=== PATIENT | female | born 1950 | race Caucasian/White ===

== ENCOUNTER → 2016-10-14 | Outpatient (REF) | payer OTHER | LOC: M LAB REF 16:54 | PROVIDERS: ATTEND Ophthalmology | DX: R50.9 Fever, unspecified (principal) ==

== ENCOUNTER → 2017-10-26 | Outpatient (CLI) | payer OTHER ==
[2017-10-26 11:10] LABS: HEMATOCRIT 38.6 % (36.0-47.0); MEAN CORPUSCULAR HEMOGLOBIN 33.5 pg (27.0-33.0); MEAN CORPUSCULAR HGB CONC 33.7 g/dl (32.0-36.5); MEAN CORPUSCULAR VOLUME 99.5 fl (80.0-96.0); PLATELET COUNT, AUTOMATED 240 10^3/uL (150-450); RED BLOOD COUNT 3.88 10^6/uL (4.00-5.40); RED CELL DISTRIBUTION WIDTH 14.7 % (11.5-14.5); WHITE BLOOD COUNT 5.6 10^3/uL (4.0-10.0)
[2017-10-26 11:13] LABS: APPEARANCE, URINE CLEAR (CLEAR); BACTERIA, URINE AUTO NEGATIVE (NEGATIVE); BILIRUBIN, URINE AUTO NEGATIVE (NEGATIVE); BLOOD, URINE BLOOD NEGATIVE (NEGATIVE); COLOR, URINE YELLOW (YELLOW); GLUCOSE, URINE (UA) AUTO NEGATIVE (NEGATIVE); KETONE, URINE AUTO NEGATIVE (NEGATIVE); LEUKOCYTE ESTERASE, URINE AUTO NEGATIVE (NEGATIVE); MUCUS, URINE SMALL (NEGATIVE); NITRITE, URINE AUTO NEGATIVE (NEGATIVE); PROTEIN, URINE AUTO NEGATIVE (NEGATIVE); RBC, URINE AUTO 3 /HPF (0-3); SQUAMOUS EPITHELIAL CELL UR AU 1 /HPF (0-6); UROBILINOGEN, URINE AUTO 0.2 mg/dL (0.0-2.0); WBC, URINE AUTO 1 /HPF (0-3)
[2017-10-26 11:23] LABS: INR 1.88; PROTHROMBIN TIME 22.2 SECONDS (12.4-14.5)
[2017-10-26 11:34] LABS: ALBUMIN/GLOBULIN RATIO 1.25 (1.00-1.93); ALKALINE PHOSPHATASE 49 U/L (45-117); ALT/SGPT 23 U/L (12-78); ANION GAP 5 MEQ/L (8-16); AST/SGOT 14 U/L (7-37); BILIRUBIN,TOTAL 0.6 MG/DL (0.2-1.0); BLOOD UREA NITROGEN 17 MG/DL (7-18); CALCIUM LEVEL 9.5 MG/DL (8.8-10.2); CARBON DIOXIDE LEVEL 29 MEQ/L (21-32); CHLORIDE LEVEL 107 MEQ/L (98-107); CREATININE FOR GFR 0.57 MG/DL (0.55-1.30); GLOMERULAR FILTRATION RATE > 60.0 (>45); GLUCOSE, FASTING 81 MG/DL (70-100); POTASSIUM SERUM 3.8 MEQ/L (3.5-5.1); SODIUM LEVEL 141 MEQ/L (136-145); TOTAL PROTEIN 7.2 GM/DL (6.4-8.2)
[2017-10-26 22:19] LABS: ERYTHROCYTE SEDIMENTATION RATE 9 mm/hr (0-30)
== END ==
LOC: M ADMPAT 09:17
DX: Z01.818 Encounter for other preprocedural examination (principal); M16.11 Unilateral primary osteoarthritis, right hip
CPT/HCPCS: 71046

== ENCOUNTER 2017-11-16 05:47 | Inpatient (IN) | payer OTHER ==
[2017-11-16] MEDS ORDERED: LIDOCAINE 1% MDV 20ML VIAL SQ (06:00)
[2017-11-16] MEDS: LR 1,000 ML IV ×4 (06:31→23:05)
[2017-11-16] MEDS ORDERED: fentaNYL 100 MCG/2 ML INJECTION (J3010) As Ordered (06:53)
[2017-11-16] MEDS ORDERED: MIDAZOLAM INJ 2 MG/2 ML VIAL (J2250) As Ordered (06:53)
[2017-11-16] MEDS ORDERED: PROPOFOL 200 MG/20 ML VIAL As Ordered (06:55)
[2017-11-16] MEDS ORDERED: LIDOCAINE 2% INJ 100 MG/5 ML SDV (FOR ANES.) As Ordered (06:55)
[2017-11-16] MEDS: EPINEPHrine INJ 1 MG/ML 1ML AMP As Ordered (08:12)
[2017-11-16] MEDS ORDERED: dexameTHASONE 4 MG/ML 1ML VIAL (J1100) As Ordered (08:14)
[2017-11-16] MEDS ORDERED: ONDANSETRON 4MG/2ML VIAL (J2405) As Ordered (08:14)
[2017-11-16] MEDS: ceFAZolin 1GM INJ (J0690 PER 500MG) As Ordered (08:16)
[2017-11-16] MEDS: TRANEXAMIC ACID 100 MG/ML 10ML VIAL As Ordered (08:17)
[2017-11-16] MEDS ORDERED: fentaNYL 100 MCG/2 ML INJECTION (J3010) IV (09:45)
[2017-11-16] MEDS ORDERED: ONDANSETRON 4MG/2ML VIAL (J2405) IV (09:45)
[2017-11-16] MEDS ORDERED: FLEET ENEMA PR (09:45)
[2017-11-16] MEDS ORDERED: ACETAMINOPHEN TAB 650MG DOSE (2X325MG) PO (09:45)
[2017-11-16] MEDS ORDERED: PERCOCET 5MG/325MG TAB As Ordered (10:07)
[2017-11-16] MEDS: PERCOCET 5MG/325MG TAB PO (10:15)
[2017-11-16] MEDS: ONDANSETRON 4MG/2ML VIAL (J2405) IV (12:05)
[2017-11-16] MEDS: HYDROMORPHONE HCL 0.5 MG/ 0.5 ML SYRINGE (J1170 PER 1) IV ×2 (13:32→19:38)
[2017-11-16] MEDS: diphenhydrAMINE 25 MG CAP PO (14:13)
[2017-11-16] MEDS: FENOFIBRATE 145 MG TAB (TRICOR) PO (19:38)
[2017-11-16] MEDS: SIMVASTATIN 10 MG TAB PO (19:38)
[2017-11-16] MEDS: QUEtiapine FUMARATE 25 MG TAB PO (19:38)
[2017-11-17] MEDS: ONDANSETRON 4MG/2ML VIAL (J2405) IV (00:20)
[2017-11-17] MEDS: HYDROMORPHONE HCL 0.5 MG/ 0.5 ML SYRINGE (J1170 PER 1) IV ×2 (00:42→05:28)
[2017-11-17] MEDS: LEVOTHYROXINE 100MCG TABLET (0.1MG) PO (05:31)
[2017-11-17 06:38] LABS: HEMATOCRIT 29.1 % (36.0-47.0); HEMOGLOBIN 9.7 g/dl (12.0-15.5); MEAN CORPUSCULAR HEMOGLOBIN 33.7 pg (27.0-33.0); MEAN CORPUSCULAR HGB CONC 33.3 g/dl (32.0-36.5); PLATELET COUNT, AUTOMATED 152 10^3/uL (150-450); RED BLOOD COUNT 2.88 10^6/uL (4.00-5.40); RED CELL DISTRIBUTION WIDTH 15.1 % (11.5-14.5)
[2017-11-17 06:47] LABS: INR 1.01; PROTHROMBIN TIME 13.4 SECONDS (12.4-14.5)
[2017-11-17 07:06] LABS: ANION GAP 8 MEQ/L (8-16); BLOOD UREA NITROGEN 19 MG/DL (7-18); CALCIUM LEVEL 8.2 MG/DL (8.8-10.2); CARBON DIOXIDE LEVEL 25 MEQ/L (21-32); CHLORIDE LEVEL 109 MEQ/L (98-107); CREATININE FOR GFR 0.65 MG/DL (0.55-1.30); GLOMERULAR FILTRATION RATE > 60.0 (>45); GLUCOSE, FASTING 155 MG/DL (70-100); MAGNESIUM LEVEL 1.9 MG/DL (1.8-2.4); POTASSIUM SERUM 3.5 MEQ/L (3.5-5.1); SODIUM LEVEL 142 MEQ/L (136-145)
[2017-11-17] MEDS ORDERED: PERCOCET 5MG/325MG TAB PO ×2 (08:00)
[2017-11-17] MEDS ORDERED: NORCO, ANEXSIA 5/325MG TABLET (HYDROcodone/ACETAMINOPHEN) PO (08:30)
[2017-11-17] MEDS: CitaloPRAM (CeleXA) 20 MG TAB PO (08:48)
[2017-11-17] MEDS: NORCO, ANEXSIA 5/325MG TABLET (HYDROcodone/ACETAMINOPHEN) PO ×3 (08:48→18:03)
[2017-11-17] MEDS: MIRALAX *UNIT DOSE* 17GM PACKET PO (08:49)
[2017-11-17] MEDS: MOM 30ML SUSPENSION UDC PO (08:49)
[2017-11-17] MEDS: SENOKOT S TAB PO ×2 (08:49→20:38)
[2017-11-17] MEDS ORDERED: ALPRAZolam 0.25 MG TAB PO (09:00)
[2017-11-17 10:08] LABS: VITAMIN B12 LEVEL 671 PG/ML (247-911)
[2017-11-17] MEDS ORDERED: PILL CRUSHER/CUTTER 1 EACH XX (17:30)
[2017-11-17] MEDS: MERCAPTOPURINE 50 MG PO (18:03)
[2017-11-17] MEDS: RIVAROXABAN 20 MG TAB (XARELTO) PO (18:03)
[2017-11-17] MEDS: QUEtiapine FUMARATE 25 MG TAB PO (20:38)
[2017-11-17] MEDS: FENOFIBRATE 145 MG TAB (TRICOR) PO (20:38)
[2017-11-17] MEDS: SIMVASTATIN 10 MG TAB PO (20:38)
[2017-11-18] MEDS: NORCO, ANEXSIA 5/325MG TABLET (HYDROcodone/ACETAMINOPHEN) PO ×3 (01:21→12:57)
[2017-11-18] MEDS: LEVOTHYROXINE 100MCG TABLET (0.1MG) PO (05:36)
[2017-11-18 06:02] LABS: HEMATOCRIT 25.7 % (36.0-47.0); HEMOGLOBIN 8.4 g/dl (12.0-15.5); MEAN CORPUSCULAR HEMOGLOBIN 33.6 pg (27.0-33.0); MEAN CORPUSCULAR HGB CONC 32.7 g/dl (32.0-36.5); MEAN CORPUSCULAR VOLUME 102.8 fl (80.0-96.0); PLATELET COUNT, AUTOMATED 120 10^3/uL (150-450); RED CELL DISTRIBUTION WIDTH 15.1 % (11.5-14.5); WHITE BLOOD COUNT 6.6 10^3/uL (4.0-10.0)
[2017-11-18 06:13] LABS: INR 1.03; PROTHROMBIN TIME 13.6 SECONDS (12.4-14.5)
[2017-11-18 06:34] LABS: ANION GAP 6 MEQ/L (8-16); BLOOD UREA NITROGEN 10 MG/DL (7-18); CALCIUM LEVEL 8.1 MG/DL (8.8-10.2); CARBON DIOXIDE LEVEL 27 MEQ/L (21-32); CHLORIDE LEVEL 109 MEQ/L (98-107); GLOMERULAR FILTRATION RATE > 60.0 (>45); GLUCOSE, FASTING 112 MG/DL (70-100); MAGNESIUM LEVEL 1.9 MG/DL (1.8-2.4); POTASSIUM SERUM 3.7 MEQ/L (3.5-5.1); SODIUM LEVEL 142 MEQ/L (136-145)
[2017-11-18] MEDS: CitaloPRAM (CeleXA) 20 MG TAB PO (08:01)
[2017-11-18] MEDS: MERCAPTOPURINE 50 MG PO (08:02)
[2017-11-18] MEDS: MOM 30ML SUSPENSION UDC PO (08:02)
[2017-11-18] MEDS: MIRALAX *UNIT DOSE* 17GM PACKET PO (08:02)
[2017-11-18] MEDS: SENOKOT S TAB PO (08:02)
== END 2017-11-18 13:10 | disposition home health service (06) | DRG 470 ==
LOC: M OR 05:47 → M MS5PR 10:20
PROC: 0SR90JA Replacement of Right Hip Joint with Synthetic Substitute, Uncemented, Open Approach (ICD-10-PCS; principal; 2017-11-16 07:30)
DX: M16.11 Unilateral primary osteoarthritis, right hip (principal); Z88.5 Allergy status to narcotic agent; Z88.8 Allergy status to other drugs, medicaments and biological substances; I10 Essential (primary) hypertension; G47.33 Obstructive sleep apnea (adult) (pediatric); E03.9 Hypothyroidism, unspecified; E78.5 Hyperlipidemia, unspecified; F32.9 Major depressive disorder, single episode, unspecified; E53.8 Deficiency of other specified B group vitamins; Z86.718 Personal history of other venous thrombosis and embolism; K52.9 Noninfective gastroenteritis and colitis, unspecified; Z79.899 Other long term (current) drug therapy; F41.9 Anxiety disorder, unspecified

== ENCOUNTER → 2020-06-12 | Outpatient (CLI) | payer SELFPAY ==
[~2020-06-12] MED LIST: ALIG4CAP PO; CALC600T31 PO; CELE40TA PO; ESTR1CRE VA; FENO145T7 PO; FISH120012 PO; HYDR-3713 PO; ICAPCAP PO; LOPE2TAB3 PO; MERC50TA2 PO; NASC1SPR; NEUR100C PO; PERC5TAB12 PO; QUET1TAB7 PO; REST0.057 OU; SIMV10TA21 PO; SYNT100T PO; VITA50005 PO; XARE20TA PO; ZOFR4TAB16 PO; [UNRECOGNIZED DRUG - CODE] PO
== END ==
LOC: M LABCAHC 18:10
PROVIDERS: ATTEND Pediatrics
DX: Z11.59 Encounter for screening for other viral diseases (principal)

== ENCOUNTER → 2021-06-12 | Outpatient (CLI) | payer OTHER ==
[~2021-06-12] MED LIST changes: +QUET1TAB17 PO; -QUET1TAB7 PO
--- NOTE | 2021-06-12 13:39 | REP ---
INDICATION: LOOSENING OF LT ARTIFICIAL HIP JOINT. COMPARISON: MRI 07/17/2020. TECHNIQUE/RADIOTRACER AND DOSE: Following the intravenous administration of 22.0 mCi technetium 99 M MDP, patient's pelvis and hips are imaged in multiple projections, in the flow phase, blood pool phase and delayed phase. FINDINGS: There are photopenic hip prostheses bilaterally. The left prosthesis is new since the prior MRI. There is minimal increased blood flow, and mild increased blood pooling in the proximal left femur lateral to the proximal aspect of the left hip prosthesis. There is diffuse increased osseous uptake surrounding the femoral portion of the left prosthesis. No significant abnormality is seen on the right. IMPRESSION: Minimal increased blood flow, mild increased blood pooling and more extensive [id number] diffuse osseous uptake involving the proximal left femur adjacent to the left femoral prosthesis. Differential diagnosis would include postsurgical uptake, loosening or infection. <Electronically signed by Rosales Elise > 06/12/21 [id number]
== END ==
LOC: M RAD 08:14
PROVIDERS: ATTEND Orthopaedic Surgery
DX: Z96.642 Presence of left artificial hip joint (principal)
CPT/HCPCS: 78315; A9503

== ENCOUNTER → 2021-07-09 | Outpatient (CLI) | payer OTHER ==
[~2021-07-09] MED LIST changes: +**SFHN** LIDOCAINE 1% MDV 20ML VIAL ONE; +**SFHN** SODIUM BICARBONATE 8.4% 10MEQ 10ML VIAL ONE; +CYMB1CAP5 PO
[2021-07-09 13:37] VITALS: BP 146/84
== END ==
LOC: M WHCPRO 12:30
PROVIDERS: ATTEND Surgery
DX: D05.11 Intraductal carcinoma in situ of right breast (principal)

== ENCOUNTER → 2021-07-26 | Outpatient (CLI) | payer OTHER ==
[~2021-07-26] MED LIST changes: -**SFHN** LIDOCAINE 1% MDV 20ML VIAL ONE; -**SFHN** SODIUM BICARBONATE 8.4% 10MEQ 10ML VIAL ONE; +PROHANCE 279.3MG/ML 15ML VIAL As Ordered ONE
== END ==
LOC: M RAD 14:36
PROVIDERS: ATTEND Surgery
DX: D05.11 Intraductal carcinoma in situ of right breast (principal); Z97.8 Presence of other specified devices
CPT/HCPCS: A9576; C8908

== ENCOUNTER → 2021-08-03 | Outpatient (CLI) | payer OTHER ==
[~2021-08-03] MED LIST changes: +CALC600T60 PO; +ERGO500029 PO; +FORT600S SC; +LEVO112T2 PO; +PRESCAP PO; -PROHANCE 279.3MG/ML 15ML VIAL As Ordered ONE
== END ==
LOC: M LABSMTC 10:46
PROVIDERS: ATTEND Anesthesiology
DX: Z20.822 Contact with and (suspected) exposure to COVID-19 (principal); Z11.52 Encounter for screening for COVID-19

== ENCOUNTER → 2021-08-05 | Outpatient (CLI) | payer OTHER ==
[~2021-08-05] MED LIST changes: +ANAS1TAB2 PO; +CALC1CAP39 PO; +LACT1TAB PO; +LOPE1CAP5 PO; +QC F0.52 PO; +ROXI1TAB2 PO
[2021-08-05 18:00] LABS: HEMATOCRIT 42.2 % (36.0-47.0); HEMOGLOBIN 13.7 g/dl (12.0-15.5); MEAN CORPUSCULAR HEMOGLOBIN 30.9 pg (27.0-33.0); MEAN CORPUSCULAR HGB CONC 32.5 g/dl (32.0-36.5); MEAN CORPUSCULAR VOLUME 95.3 fl (80.0-96.0); PLATELET COUNT, AUTOMATED 214 10^3/uL (150-450); RED BLOOD COUNT 4.43 10^6/uL (4.00-5.40); WHITE BLOOD COUNT 7.1 10^3/uL (4.0-10.0)
== END ==
LOC: M PLAIMG 14:44
PROVIDERS: ATTEND Surgery
DX: Z01.818 Encounter for other preprocedural examination (principal)

== ENCOUNTER 2021-08-08 07:23 | Day surgery (SDC) | payer OTHER ==
[~2021-08-08] VITALS: Ht 160 cm; Wt 72.2 kg
[~2021-08-08 07:23] MED LIST changes: -ANAS1TAB2 PO; -CALC1CAP39 PO; +HEPARIN SOD (PORCINE) 5000UNITS/ML 1ML VIAL/SYRINGE SQ ONE; -LACT1TAB PO; +LIDOCAINE 1% MDV 20ML VIAL SQ PRN; -LOPE1CAP5 PO; +LR 1,000 ML IV ONE; -QC F0.52 PO; -ROXI1TAB2 PO; +ceFAZolin SOD 2 GM in IV 1 EA IV ONE
[2021-08-08] MEDS ORDERED: ONDANSETRON 4MG/2ML VIAL As Ordered ONE (09:09)
[2021-08-08] MEDS ORDERED: LIDOCAINE 2% 100MG/5ML SDV (FOR ANES.) As Ordered ONE (09:09)
[2021-08-08] MEDS ORDERED: METOCLOPRAMIDE INJ 10MG/2ML VIAL (J2765 PER 1) As Ordered ONE (09:09)
[2021-08-08] MEDS ORDERED: dexameTHASONE 4 MG/ML 1ML VIAL (J1100 PER 1MG) As Ordered ONE (09:09)
[2021-08-08] MEDS ORDERED: ACETAMINOPHEN 1000MG 100ML IV BTL (OFIRMEV) (J0131 PER 10MG) As Ordered ONE (09:09)
[2021-08-08] MEDS ORDERED: fentaNYL 100 MCG/2 ML INJECTION As Ordered ONE ×2 (09:09→11:46)
[2021-08-08] MEDS ORDERED: propofoL 200 MG/20 ML VIAL As Ordered ONE (09:09)
[2021-08-08] MEDS ORDERED: MIDAZOLAM INJ 2MG/2ML VIAL (J2250 PER 1MG) As Ordered ONE (09:09)
[2021-08-08] MEDS ORDERED: LIDOCAINE 1% SDV 30ML VIAL As Ordered ONE (09:45)
[2021-08-08] MEDS ORDERED: BUPIVACAINE HCL 0.25% 30ML VIAL As Ordered ONE (09:45)
[2021-08-08] MEDS ORDERED: METHYLENE BLUE 0.5% (5MG/ML) 10 ML AMP (PROVAYBLUE) As Ordered ONE (09:45)
[2021-08-08] MEDS ORDERED: LABETALOL 100MG/20ML VIAL As Ordered ONE (13:31)
[2021-08-08] MEDS ORDERED: ROXI1TAB2 PO (13:47)
[2021-08-08] MEDS ORDERED: oxyCODONE 5MG TAB PO PRN (13:55)
[2021-08-08] MEDS ORDERED: LR 1,000 ML IV SCH (13:55)
[2021-08-08] MEDS ORDERED: diphenhydrAMINE 50MG/ML VIAL (J1200) IV PRN (13:55)
[2021-08-08] MEDS ORDERED: ONDANSETRON 4MG/2ML VIAL IV PRN (13:55)
[2021-08-08] MEDS ORDERED: fentaNYL 100 MCG/2 ML INJECTION IV PRN (13:55)
[2021-08-08 15:10] VITALS: BP 122/74
[2021-08-23] MEDS ORDERED: FORT600S SC (09:40)
[2021-08-23] MEDS ORDERED: FENO145T7 PO (09:40)
[2021-08-23] MEDS ORDERED: QC F0.52 PO (09:40)
[2021-08-23] MEDS ORDERED: LACT1TAB PO (09:40)
[2021-08-23] MEDS ORDERED: CALC1CAP39 PO (09:40)
[2021-08-23] MEDS ORDERED: LOPE1CAP5 PO (09:40)
[2021-08-23] MEDS ORDERED: ANAS1TAB2 PO (09:52)
== END 2021-08-08 15:17 | disposition home or self-care (01) ==
LOC: M SDC 07:23
PROVIDERS: ATTEND Surgery
DX: D05.11 Intraductal carcinoma in situ of right breast (principal); D24.1 Benign neoplasm of right breast; E78.00 Pure hypercholesterolemia, unspecified; E03.9 Hypothyroidism, unspecified; Z90.49 Acquired absence of other specified parts of digestive tract; Z86.718 Personal history of other venous thrombosis and embolism; M19.90 Unspecified osteoarthritis, unspecified site; M81.0 Age-related osteoporosis without current pathological fracture; F41.9 Anxiety disorder, unspecified; G47.30 Sleep apnea, unspecified; Z87.891 Personal history of nicotine dependence; Z88.8 Allergy status to other drugs, medicaments and biological substances; Z88.5 Allergy status to narcotic agent; Z79.899 Other long term (current) drug therapy
CPT/HCPCS: 19125; 36415; 76942; 86850; 86900; 86901; 88305; 88307; J0131; J0690; J1100; J1644; J2250; J2405; J2765; J3010

== ENCOUNTER → 2021-08-23 | Outpatient (CLI) | payer OTHER ==
[~2021-08-23] MED LIST changes: +ANAS1TAB2 PO; +CALC1CAP39 PO; -HEPARIN SOD (PORCINE) 5000UNITS/ML 1ML VIAL/SYRINGE SQ ONE; +LACT1TAB PO; -LIDOCAINE 1% MDV 20ML VIAL SQ PRN; +LOPE1CAP5 PO; -LR 1,000 ML IV ONE; +QC F0.52 PO; +ROXI1TAB2 PO; -ceFAZolin SOD 2 GM in IV 1 EA IV ONE
== END ==
LOC: M ONCR 10:11
PROVIDERS: ATTEND General Practice
DX: D05.11 Intraductal carcinoma in situ of right breast (principal); Z79.899 Other long term (current) drug therapy; Z87.891 Personal history of nicotine dependence; Z88.5 Allergy status to narcotic agent; Z88.8 Allergy status to other drugs, medicaments and biological substances

== ENCOUNTER 2021-09-20 13:14 | Outpatient (RCR) | payer OTHER | END 2021-10-03 | LOC: M ONCR 13:14 | PROVIDERS: ATTEND General Practice | DX: D05.11 Intraductal carcinoma in situ of right breast (principal) ==

== ENCOUNTER → 2022-03-19 | Outpatient (CLI) | payer OTHER | LOC: M ONCR 09:21 | PROVIDERS: ATTEND General Practice | DX: Z08 Encounter for follow-up examination after completed treatment for malignant neoplasm (principal); Z85.3 Personal history of malignant neoplasm of breast; Z79.891 Long term (current) use of opiate analgesic; Z79.899 Other long term (current) drug therapy; Z79.811 Long term (current) use of aromatase inhibitors; Z88.5 Allergy status to narcotic agent; Z88.8 Allergy status to other drugs, medicaments and biological substances; Z92.3 Personal history of irradiation ==

== ENCOUNTER → 2022-03-19 | Outpatient (CLI) | payer OTHER ==
[~2022-03-19] MED LIST changes: +LIDOCAINE 1% MDV 20ML VIAL As Ordered ONE
[2022-03-19 12:58] LABS: SOURCE, BODY FLUID LT HIP; SYNOVIAL FLUID COLOR PINK (COLORLESS)
== END ==
LOC: M RADPRO 11:32 → M IRPRO 11:32
PROVIDERS: ATTEND Orthopaedic Surgery
DX: M70.62 Trochanteric bursitis, left hip (principal)

== ENCOUNTER → 2022-04-02 | Outpatient (CLI) | payer OTHER ==
[~2022-04-02] MED LIST changes: -LIDOCAINE 1% MDV 20ML VIAL As Ordered ONE
== END ==
LOC: M RAD 07:30
PROVIDERS: ATTEND Orthopaedic Surgery
DX: M70.62 Trochanteric bursitis, left hip (principal)
CPT/HCPCS: 78315; A9503

== ENCOUNTER → 2022-06-09 | Outpatient (CLI) | payer OTHER | LOC: M WHC 10:48 | PROVIDERS: ATTEND Nurse Practitioner Women's Health | DX: D05.11 Intraductal carcinoma in situ of right breast (principal) | CPT/HCPCS: 77066; G0279 ==

== ENCOUNTER → 2022-06-25 | Outpatient (CLI) | payer OTHER | LOC: M RAD 09:08 | PROVIDERS: ATTEND Internal Medicine Medical Oncology | DX: C50.911 Malignant neoplasm of unspecified site of right female breast (principal); R74.8 Abnormal levels of other serum enzymes; K80.20 Calculus of gallbladder without cholecystitis without obstruction ==

== ENCOUNTER → 2022-07-21 | Outpatient (CLI) | payer OTHER ==
[~2022-07-21] MED LIST changes: +PROHANCE 279.3MG/ML 15ML VIAL ONE
== END ==
LOC: M PLAIMG 09:41
PROVIDERS: ATTEND Internal Medicine Medical Oncology
DX: R74.8 Abnormal levels of other serum enzymes (principal); Q44.6 Cystic disease of liver

== ENCOUNTER → 2022-07-22 | Outpatient (CLI) | payer OTHER ==
[~2022-07-22] MED LIST changes: -PROHANCE 279.3MG/ML 15ML VIAL ONE
== END ==
LOC: M RAD 10:07
PROVIDERS: ATTEND Specialist
DX: C50.911 Malignant neoplasm of unspecified site of right female breast (principal)
CPT/HCPCS: 78306; A9503

== ENCOUNTER → 2022-08-11 | Outpatient (CLI) | payer OTHER, MEDICARE | LOC: M WHC 10:48 | PROVIDERS: ATTEND Internal Medicine Endocrinology, Diabetes & Metabolism | DX: Z13.820 Encounter for screening for osteoporosis (principal); M85.88 Other specified disorders of bone density and structure, other site; M85.851 Other specified disorders of bone density and structure, right thigh; M81.0 Age-related osteoporosis without current pathological fracture ==

== ENCOUNTER → 2022-09-19 | Outpatient (CLI) | payer MEDICARE, OTHER ==
[~2022-09-19] MED LIST changes: +MIRT-10 PO
== END ==
LOC: M ONCR 08:59
PROVIDERS: ATTEND General Practice
DX: D05.11 Intraductal carcinoma in situ of right breast (principal); G47.00 Insomnia, unspecified; R63.8 Other symptoms and signs concerning food and fluid intake; Z79.811 Long term (current) use of aromatase inhibitors; Z79.899 Other long term (current) drug therapy; Z88.5 Allergy status to narcotic agent; Z92.3 Personal history of irradiation

== ENCOUNTER → 2023-05-13 | Outpatient (CLI) | payer OTHER, MEDICARE ==
[~2023-05-13] MED LIST changes: +DULO1CAP6 PO; +NASC1SPR INH; +TAMO20TA8 PO
== END ==
LOC: M WHC 11:30
PROVIDERS: ATTEND Nurse Practitioner Women's Health
DX: D05.11 Intraductal carcinoma in situ of right breast (principal)
CPT/HCPCS: 77066; G0279

== ENCOUNTER → 2023-09-18 | Outpatient (CLI) | payer OTHER, MEDICARE ==
[~2023-09-18] MED LIST changes: +NYST-38 PO
== END ==
LOC: M ONCR 09:25
PROVIDERS: ATTEND General Practice
DX: Z08 Encounter for follow-up examination after completed treatment for malignant neoplasm (principal); Z85.3 Personal history of malignant neoplasm of breast; Z71.2 Person consulting for explanation of examination or test findings; Z79.810 Long term (current) use of selective estrogen receptor modulators (SERMs); Z79.899 Other long term (current) drug therapy; Z87.891 Personal history of nicotine dependence; Z92.3 Personal history of irradiation; Z98.890 Other specified postprocedural states

== ENCOUNTER → 2024-05-16 | Outpatient (CLI) | payer OTHER, MEDICARE | LOC: M WHC 12:44 | PROVIDERS: ATTEND Nurse Practitioner | DX: Z12.31 Encounter for screening mammogram for malignant neoplasm of breast (principal); Z85.3 Personal history of malignant neoplasm of breast | CPT/HCPCS: 77066; G0279 ==

== ENCOUNTER → 2024-09-20 | Outpatient (CLI) | payer OTHER ==
[~2024-09-20] MED LIST changes: -ALIG4CAP PO; +ALIG4CAP3 PO; +METR-369
== END ==
LOC: M ONCR 09:14
PROVIDERS: ATTEND General Practice
DX: Z08 Encounter for follow-up examination after completed treatment for malignant neoplasm (principal); Z85.3 Personal history of malignant neoplasm of breast; Z98.890 Other specified postprocedural states; Z92.3 Personal history of irradiation; Z79.810 Long term (current) use of selective estrogen receptor modulators (SERMs); Z79.899 Other long term (current) drug therapy; Z88.5 Allergy status to narcotic agent; Z88.8 Allergy status to other drugs, medicaments and biological substances

== ENCOUNTER → 2025-02-09 | Outpatient (CLI) | payer OTHER ==
[~2025-02-09] MED LIST changes: +MERC20OR3 PO; -MERC50TA2 PO
== END ==
LOC: M WHC 12:06
PROVIDERS: ATTEND Internal Medicine Gastroenterology
DX: M81.0 Age-related osteoporosis without current pathological fracture (principal); M85.88 Other specified disorders of bone density and structure, other site

== ENCOUNTER → 2025-05-18 | Outpatient (CLI) | payer MEDICARE, OTHER ==
[~2025-05-18] MED LIST changes: +HUMI40IN2; +LEVO137T2; +LISI10TA22; -MERC20OR3 PO; +MERC50TA2 PO
== END ==
LOC: M WHC 10:20
DX: Z12.31 Encounter for screening mammogram for malignant neoplasm of breast (principal)